=== PATIENT | female | born 1995 ===

== ENCOUNTER 2017-08-14 18:55 | Emergency (ER) | payer OTHER ==
[~2017-08-14] VITALS: Ht 167.6 cm; Wt 102.6 kg
[2017-08-14 18:59] VITALS: TEMP 36.9; Ht 167.6 cm; Wt 102.6 kg
[2017-08-14] MEDS ORDERED: SODIUM CHLORIDE 0.9% 1000ML 1,000 ML IV STA (19:27)
[2017-08-14 19:57] VITALS: O2SAT 97
[2017-08-14 20:09] LABS: BASO % 0.5 %; BASO ABS # 0.04 K/uL (0-0.2); COMPLETE YES; EOS % 0.6 %; HEMATOCRIT 38.4 % (37-47); LYMPH % 26.4 %; LYMPH ABS # 2.25 K/uL (1.2-3.4); MEAN CORPUSCULAR HEMOGLOBIN 29.9 pg (25-34); MEAN CORPUSCULAR HGB CONC 32.8 g/dl (32-36); MEAN PLATELET VOLUME 9.8 fL (7.4-10.4); NEUT % 60.5 %; PLATELET COUNT 295 K/uL (130-400); RED BLOOD COUNT 4.22 M/uL (4.2-5.4); WHITE BLOOD COUNT 8.53 K/uL (4.8-10.8)
[2017-08-14 20:18] LABS: URINE APPEARANCE TURBID (CLEAR); URINE BILIRUBIN NEG (NEG); URINE COLOR YELLOW; URINE EPITHELIAL CELL AUTO >30 /lpf (0-5); URINE NITRITE NEG (NEG); UROBILINOGEN NEG (NEG)
--- NOTE | 2017-08-14 20:19 | DIAGNOSTIC IMAGING REPORT ---
CHEST ONE VIEW PORTABLE CLINICAL HISTORY: EVALUATE ALTERED MENTAL STATUS/WEAKNESS COMPARISON STUDY: No previous studies for comparison. FINDINGS: Lung volumes are normal. There is no consolidation. No pneumothorax or pleural effusion is present. Cardiomediastinal silhouette is normal. Pulmonary vascularity is normal. IMPRESSION: No acute cardiopulmonary findings. Electronically signed by: Jose Polo M.D. 08/14/2017 8:18 PM Dictated Date/Time: 08/14/2017 8:17 PM
[2017-08-14 20:21] LABS: MANUAL MICROSCOPIC REQUIRED? NO; REVIEW REQ? YES
[2017-08-14 20:23] LABS: PARTIAL THROMBOPLASTIN RATIO 1.1
--- NOTE | 2017-08-14 20:24 | DIAGNOSTIC IMAGING REPORT ---
CT OF THE HEAD WITHOUT CONTRAST CLINICAL HISTORY: EVALUATE ALTERED MENTAL STATUS/WEAKNESS. Fall. COMPARISON STUDY: No previous studies for comparison. CT DOSE: 901.94 mGy.cm TECHNIQUE: Helical axial images of the head were obtained without IV contrast. Automated exposure control was utilized for the study. A dose lowering technique was utilized adhering to the principles of ALARA. FINDINGS: No acute intracranial hemorrhage, midline shift or mass effect is present. Ventricular system is normal. Basilar cisterns are patent. There are no extra-axial collections. Alfredo-white differentiation is maintained. There are no findings to suggest acute dural sinus thrombosis or acute territorial infarct. No calvarial fracture. Visualized portions of the sinuses and mastoid air cells are clear. IMPRESSION: 1. No acute intracranial findings. 2. No calvarial fracture. Electronically signed by: Jose Polo M.D. 08/14/2017 8:23 PM Dictated Date/Time: 08/14/2017 8:18 PM
--- NOTE | 2017-08-14 20:27 | DIAGNOSTIC IMAGING REPORT ---
CT OF THE CERVICAL SPINE WITHOUT CONTRAST CLINICAL HISTORY: Fall. COMPARISON STUDY: No previous studies for comparison. TECHNIQUE: Helical axial images of the cervical spine were obtained without IV contrast. Sagittal and coronal reconstructions were viewed. A dose lowering technique was utilized adhering to the principles of ALARA. FINDINGS: There is reversal of the normal cervical lordosis. Craniocervical junction is intact. There is no acute cervical spine fracture. There is no prevertebral edema. IMPRESSION: 1. No acute cervical spine fracture or subluxation. 2. Reversal of the normal cervical lordosis. Electronically signed by: Jose Polo M.D. 08/14/2017 8:26 PM Dictated Date/Time: 08/14/2017 8:23 PM
[2017-08-14 20:31] LABS: ALT/SGPT 15 U/L (12-78); BLOOD UREA NITROGEN 12 mg/dl (7-18); BUN/CREATININE RATIO 16.7 (10-20); CALCIUM 8.4 mg/dl (8.5-10.1); CARBON DIOXIDE 27 mmol/L (21-32); CHLORIDE 102 mmol/L (98-107); CREATININE 0.72 mg/dl (0.60-1.20); GLUCOSE 92 mg/dl (70-99); POTASSIUM 3.7 mmol/L (3.5-5.1); SODIUM 138 mmol/L (136-145)
[2017-08-14 20:42] LABS: ALKALINE PHOSPHATASE 72 U/L (45-117); AST/SGOT 10 U/L (15-37)
[2017-08-14 21:35] LABS: PREG INTERNAL NEGATIVE QC NEG CLEAR BACKGROUND; PREG INTERNAL POSITIVE QC POS CONTROL LINE
[2017-08-14] MEDS ORDERED: KETOROLAC TROMETHAMINE 30 MG/ML VIAL IV STA (22:14)
[2017-08-14] MEDS ORDERED: PENICILLIN V POTASSIUM 250 MG TAB PO ONE (22:15)
[2017-08-14] MEDS ORDERED: PENI500T2 PO (22:17)
[2017-08-14 22:52] VITALS: BP 134/87; PULSE 100; O2SAT 98
--- NOTE | 2017-08-15 00:23 | EMERGENCY ROOM VISIT NOTE ---
History Report prepared by Eleazar: Kat Martínez Under the Supervision of: Dr. Piyush Lainez D.O. First contact with patient: 19:18 Chief Complaint: SYNCOPE Stated Complaint: SWOLLEN THROAT, PAIN, FAINTING Nursing Triage Summary: Pt c/o sore throat past few days. Today had not felt well, passed out during class. Denies hitting head but states she does not remember fainting just waking up on ground. History of Present Illness The patient is a 22 year old female who presents to the Emergency Room with complaints of a constant sore throat beginning 4 days ago. The patient states that she has not been feeling well and today during class she got hot and had an episode of loss of consciousness. She notes that she has had episodes of syncope before and notes that when she woke up after the episode she knew where she was. The patient complains of a headache and neck pain. She also notes a cough, runny nose, difficulty swallowing, and eating and drinking less. The patient denies headache, change in vision, fevers, chest pain, shortness of breath, nausea, vomiting, diarrhea, pain with urination, and melena. The patient is not sure if she had any head injury but she was standing when she fell. She denies any swelling in the legs, history of cancer, coughing up blood , recent trips, and recent surgeries. Source of History: patient Onset: 4 days ago Position: throat Quality: other (sore) Timing: constant Associated Symptoms: + LOC, No fevers, No headache, No chest pain, No SOB, No nausea, No vomiting, No melena, No diarrhea, No urinary symptoms Note: She also notes a cough, runny nose, difficulty swallowing, and eating and drinking less. Review of Systems See HPI for pertinent positives & negatives. A total of 10 systems reviewed and were otherwise negative. Past Medical & Surgical Medical Problems: (1) Syncope Family History No pertinent family history stated. Social History Smoking Status: Never Smoker Marital Status: single Housing Status: lives with roommate Occupation Status: [employer] student Current/Historical Medications Scheduled Penicillin V Potassium (Veetids), 1 TAB PO BID Allergies Coded Allergies: No Known Allergies (Unverified , 08/14/17) Physical Exam Vital Signs Date Time Temp Pulse Resp B/P (MAP) Pulse Ox O2 Delivery O2 Flow Rate FiO2 08/14/17 22:52 100 18 134/87 98 Room Air 08/14/17 22:28 99 18 141/100 98 Room Air 08/14/17 20:38 106 08/14/17 20:27 92 126/74 102 132/88 93 120/83 08/14/17 19:57 97 Room Air 08/14/17 18:59 36.9 98 18 140/91 98 Room Air Physical Exam GENERAL: Sitting up in bed, alert, well appearing, well nourished, no distress, non-toxic HEAD: Normocephalic, atraumatic EYE EXAM: normal conjunctiva. PERRL and EOM's intact. OROPHARYNX: Posterior pharyngeal exudate bilaterally, lips, buccal mucosa, and tongue normal and mucous membranes are moist NECK: supple, no nuchal rigidity, no adenopathy, faint midline tenderness in the cervical region LUNGS: Clear to auscultation. Normal chest wall mechanics HEART: no murmurs, S1 normal and S2 normal ABDOMEN: abdomen soft, non-tender, normo-active bowel sounds, no masses, no rebound or guarding. BACK: Back is symmetrical on inspection and there is no deformity, no midline tenderness, no CVA tenderness. SKIN: no rashes and no bruising UPPER EXTREMITIES: upper extremities are grossly normal. LOWER EXTREMITIES: No pitting edema. NEURO EXAM: Normal sensorium, cranial nerves II-XII intact, normal speech, no weakness of arms, no weakness of legs. No drift. Finger to nose intact. Gross sensation intact. Medical Decision & Procedures ER Provider Diagnostic Interpretation: Radiology results as stated below per my review and the radiologist's interpretation: CT OF THE HEAD WITHOUT CONTRAST TECHNIQUE: Helical axial images of the head were obtained without IV contrast. Automated exposure control was utilized for the study. A dose lowering technique was utilized adhering to the principles of ALARA. FINDINGS: No acute intracranial hemorrhage, midline shift or mass effect is present. Ventricular system is normal. Basilar cisterns are patent. There are no extra-axial collections. Alfredo-white differentiation is maintained. There are no findings to suggest acute dural sinus thrombosis or acute territorial infarct. No calvarial fracture. Visualized portions of the sinuses and mastoid air cells are clear. IMPRESSION: 1. No acute intracranial findings. 2. No calvarial fracture. Electronically signed by: Jose Polo M.D. 08/14/2017 8:23 PM Dictated Date/Time: 08/14/2017 8:18 PM CHEST ONE VIEW PORTABLE FINDINGS: Lung volumes are normal. There is no consolidation. No pneumothorax or pleural effusion is present. Cardiomediastinal silhouette is normal. Pulmonary vascularity is normal. IMPRESSION: No acute cardiopulmonary findings. Electronically signed by: Jose Polo M.D. 08/14/2017 8:18 PM Dictated Date/Time: 08/14/2017 8:[address] OF THE CERVICAL SPINE WITHOUT CONTRAST TECHNIQUE: Helical axial images of the cervical spine were obtained without IV contrast. Sagittal and coronal reconstructions were viewed. A dose lowering technique was utilized adhering to the principles of ALARA. FINDINGS: There is reversal of the normal cervical lordosis. Craniocervical junction is intact. There is no acute cervical spine fracture. There is no prevertebral edema. IMPRESSION: 1. No acute cervical spine fracture or subluxation. 2. Reversal of the normal cervical lordosis. Electronically signed by: Jose Polo M.D. 08/14/2017 8:26 PM Dictated Date/Time: 08/14/2017 8:23 PM Laboratory Results 08/14/17 19:50 Red Blood Count 4.22, Mean Corpuscular Volume 91.0, Mean Corpuscular Hemoglobin 29.9, Mean Corpuscular Hemoglobin Concent 32.8, Mean Platelet Volume 9.8, Neutrophils (%) (Auto) 60.5, Lymphocytes (%) (Auto) 26.4, Monocytes (%) (Auto) 12.0, Eosinophils (%) (Auto) 0.6, Basophils (%) (Auto) 0.5, Neutrophils # (Auto ) 5.17, Lymphocytes # (Auto) 2.25, Monocytes # (Auto) 1.02, Eosinophils # (Auto ) 0.05, Basophils # (Auto) 0.04 08/14/17 19:50 Test 08/14/17 19:50 08/14/17 20:00 08/14/17 20:01 White Blood Count 8.53 K/uL (4.8-10.8) Red Blood Count 4.22 M/uL (4.2-5.4) Hemoglobin 12.6 g/dL (12.0-16.0) Hematocrit 38.4 % (37-47) Mean Corpuscular Volume 91.0 fL (80-100) Mean Corpuscular Hemoglobin 29.9 pg (25-34) Mean Corpuscular Hemoglobin Concent 32.8 g/dl (32-36) Platelet Count 295 K/uL (130-400) Mean Platelet Volume 9.8 fL (7.4-10.4) Neutrophils (%) (Auto) 60.5 % Lymphocytes (%) (Auto) 26.4 % Monocytes (%) (Auto) 12.0 % Eosinophils (%) (Auto) 0.6 % Basophils (%) (Auto) 0.5 % Neutrophils # (Auto) 5.17 K/uL (1.4-6.5) Lymphocytes # (Auto) 2.25 K/uL (1.2-3.4) Monocytes # (Auto) 1.02 K/uL (0.11-0.59) Eosinophils # (Auto) 0.05 K/uL (0-0.5) Basophils # (Auto) 0.04 K/uL (0-0.2) RDW Standard Deviation 45.7 fL (36.4-46.3) RDW Coefficient of Variation 13.7 % (11.5-14.5) Immature Granulocyte % (Auto) 0.0 % Immature Granulocyte # (Auto) 0.00 K/uL (0.00-0.02) Activated Partial Thromboplast Time 28.7 SECONDS (21.0-31.0) Partial Thromboplastin Ratio 1.1 D-Dimer < 190 ug/L FEU (0-500) Anion Gap 9.0 mmol/L (3-11) Est Creatinine Clear Calc Drug Dose 149.5 ml/min Estimated GFR () 138.7 Estimated GFR (Non- 119.7 BUN/Creatinine Ratio 16.7 (10-20) Calcium Level 8.4 mg/dl (8.5-10.1) Total Bilirubin 0.2 mg/dl (0.2-1) Direct Bilirubin < 0.1 mg/dl (0-0.2) Aspartate Amino Transf (AST/SGOT) 10 U/L (15-37) Alanine Aminotransferase (ALT/SGPT) 15 U/L (12-78) Alkaline Phosphatase 72 U/L (45-117) Troponin I < 0.015 ng/ml (0-0.045) Total Protein 7.1 gm/dl (6.4-8.2) Albumin 3.2 gm/dl (3.4-5.0) Thyroid Stimulating Hormone (TSH) 1.230 uIu/ml (0.300-4.500) Urine Color YELLOW Urine Appearance TURBID (CLEAR) Urine pH 5.0 (4.5-7.5) Urine Specific [place] 1.040 (1.000-1.030) Urine Protein TRACE (NEG) Urine Glucose (UA) NEG (NEG) Urine Ketones TRACE (NEG) Urine Occult Blood 2+ (NEG) Urine Nitrite NEG (NEG) Urine Bilirubin NEG (NEG) Urine Urobilinogen NEG (NEG) Urine Leukocyte Esterase NEG (NEG) Urine WBC (Auto) 10-30 /hpf (0-5) Urine RBC (Auto) 5-10 /hpf (0-4) Urine Hyaline Casts (Auto) 0 /lpf (0-5) Urine Epithelial Cells (Auto) >30 /lpf (0-5) Urine Bacteria (Auto) 3+ (NEG) Urine Pathogenic Casts /lpf (0) Urine Test NEG (NEG) Bedside Glucose 90 mg/dl (70-90) Laboratory results per my review. Medications Administered Medications (Trade) Dose Ordered Sig/Micah Route Start Time Stop Time Status Last Admin Dose Admin Sodium Chloride 1,000 ml @ 999 mls/hr Q1H1M STAT IV 08/14/17 19:27 08/14/17 20:27 DC 08/14/17 20:30 999 MLS/HR Ketorolac Tromethamine (Toradol Inj) 30 mg NOW STAT IV 08/14/17 22:14 08/14/17 22:15 DC 08/14/17 22:26 30 MG Penicillin V Potassium (Veetids Tab) 500 mg NOW ONCE PO 08/14/17 22:15 08/14/17 22:16 DC 08/14/17 22:29 500 MG ECG Indication: syncope Rate (beats per minute): 88 Rhythm: sinus rhythm Findings: no acute ischemic change, no ectopy, other (normal axis, no ischemia) ED Course ED COURSE: Vital signs were reviewed and showed tachycardia and hypertension The patients medical record was reviewed The above diagnostic studies were performed and reviewed. ED treatments and interventions as stated above. 1917: The patient was evaluated in room B3. A complete history and physical examination was performed. 1926: Sodium Chloride 1000 ml @ 999 mls/hr IV. 2155: I reevaluated and updated the patient. She is doing well. 2213: Toradol Inj 30mg IV, Veetids Tab 500mg PO. 2227: Upon reevaluation, the patient is doing well.I discussed my findings with the patient and she understands and agrees with the treatment plan. Based on the patients age, coexisting illnesses, exam and lab findings the decision to treat as an outpatient was made. The patient remained stable while under my care. The patient appeared well at the time of discharge. Medical Decision Differential diagnosis includes etiologies such as vasovagal event, infection, hypoglycemia, electrolyte abnormalities, cardiac sources, intracerebral event, toxicologic, neurologic, as well as others were entertained. Patient is a 22-year-old female who presents to ER for for cough, runny nose and sore throat. Patient has not been eating and drinking. Sitting blood so where she felt warm and hot. This was in lab. Favor vasovagal. No seizure activity. Completely neurologically intact. CT head and cervical spine was negative. Clearly has a pharyngitis. Was given fluids. EKG unremarkable. CBC all BMP, LFTs, bilirubin was unremarkable. Troponin was negative. UA contaminated. negative. Patient was updated at bedside. IV Toradol given. Oral penicillin given for pharyngitis. Patient was updated bedside discharged follow-up with PCP as an outpatient. Discussed with Pt concerning signs and symptoms to watch out for. Pt was instructed to follow up with their PCP and discussed with the patient their option to return to the ED at anytime for persistent or worsening symptoms. The appropriate anticipatory guidance and out-patient management, including indications for return to the emergency department, were explained at length to the patient and understood. Medication Reconcilliation Current Medication List: was personally reviewed by me Blood Pressure Screening Patient's blood pressure: Elevated blood pressure Blood pressure disposition: Elevated BP felt to be situational Impression Primary Impression: Syncope Additional Impression: Pharyngitis Scribe Attestation The scribe's documentation has been prepared under my direction and personally reviewed by me in its entirety. I confirm that the note above accurately reflects all work, treatment, procedures, and medical decision making performed by me. Departure Information Dispostion Home / Self-Care Prescriptions Penicillin V Potassium (VEETIDS) 500 Mg Tab 1 TAB PO BID for 10 Days, #20 TAB Prov: Piyush Lainez, DO 08/14/17 Referrals No Doctor, Assigned (PCP) Forms HOME CARE DOCUMENTATION FORM, IMPORTANT VISIT INFORMATION Patient Instructions ED Strep Pharyngitis Raf[place], My [facility], Syncope Causes Additional Instructions Please follow up with your primary care doctor or if you are a student, [facility] [address] with in the next 24 hours. Any worsening of your symptoms, please return to the ED immediately. This includes any fevers greater than 100.4, worsening pain, chest pain, shortness breath, persistent nausea, vomiting, unable to eat or drink, or any other concerning signs or symptoms from your standpoint. Please take antibiotics as prescribed. Please take Tylenol or Motrin as needed for pain. Please try to remain as hydrated as possible. Problem Qualifiers Primary Impression: Syncope Syncope type: vasovagal syncope Qualified Codes: R55 - Syncope and collapse Additional Impression: Pharyngitis Pharyngitis/tonsillitis etiology: unspecified etiology Qualified Codes: J02.9 - Acute pharyngitis, unspecified
== END 2017-08-14 22:58 | disposition home or self-care (01) ==
LOC: C.EDB 18:57
DX: J02.9 Acute pharyngitis, unspecified (principal); R55 Syncope and collapse